=== PATIENT | female | born 1995 | race Caucasian/White ===

== ENCOUNTER 2018-11-13 17:18 | Emergency (ER) | payer OTHER ==
[2018-11-13] MEDS ORDERED: NORMAL SALINE 1000 ML 1,000 ML IV ONE ×2 (18:03→20:42)
--- NOTE | 2018-11-13 18:05 | ER Document Report ---
ED Medical Screen (RME) - General Chief Complaint: High Blood Sugar Stated Complaint: HIGH BLOOD SUGER Time Seen by Provider: 11/13/18 17:40 Mode of Arrival: Ambulatory Information source: Patient Notes: 22-year-old female presented to ED for complaint of elevated blood pressure elevated pulse diabetes type 2 with a blood sugar of over 400 this morning over 300 this afternoon. She states she has been nauseated but no vomiting. Blood pressure is triple over triples. She states normally her blood pressure is within normal limits. She states her pulse usually runs normal. Patient is al ert oriented respirations regular and unlabored. Apical pulse is 132. I have greeted and performed a rapid initial assessment of this patient. A comprehensive ED assessment and evaluation of the patient, analysis of test results and completion of medical decision making process will be conducted by an additional ED providers. Dictation of this chart was performed using voice recognition software; therefore, there may be some unintended grammatical errors. TRAVEL OUTSIDE OF THE [place] IN LAST 30 DAYS: No - Related Data Allergies/Adverse Reactions: No Known Allergies Allergy (Unverified 11/13/18 17:37) Physical Exam - Vital signs Vitals: Temp Pulse BP Pulse Ox 98.4 F 138 H 162/101 H 96 11/13/18 17:32 11/13/18 17:32 11/13/18 17:32 11/13/18 17:32 Course - Vital Signs Vital signs: Temp Pulse Resp BP Pulse Ox 98.4 F 129 H 169/118 H 98 11/13/18 17:32 11/13/18 18:00 11/13/18 18:00 11/13/18 18:00
[2018-11-13 18:37] LABS: ABSOLUTE LYMPHOCYTES (AUTO) 1.5 10^3/uL (0.5-4.7); ABSOLUTE MONOCYTES (AUTO) 0.6 10^3/uL (0.1-1.4); ABSOLUTE NEUT (AUTO) 3.2 10^3/uL (1.7-8.2); BASOPHILS % (AUTO) 0.6 % (0-2); EOSINOPHILS % (AUTO) 0.7 % (0-6); HEMATOCRIT 41.8 % (36.0-47.0); HEMOGLOBIN 14.2 g/dL (12.0-15.5); MEAN CORPUSCULAR HEMOGLOBIN 27.8 pg (27.0-33.4); MEAN CORPUSCULAR VOLUME 82 fl (80-97); MONOCYTES % (AUTO) 10.8 % (3-13); PLATELET COUNT 166 10^3/uL (150-450); RED BLOOD COUNT 5.12 10^6/uL (3.72-5.28); RED CELL DISTRIBUTION WIDTH 13.7 % (11.5-14.0); SEGMENTED NEUTROPHILS % (AUTO) 59.9 % (42-78); TOTAL CELLS COUNTED % (AUTO) 100 %; VENOUS BLOOD BASE EXCESS 0.4 mmol/L; VENOUS BLOOD HCO3 25.3 mmol/L (20-32); VENOUS BLOOD PCO2 41.6 mmHg (35-63); VENOUS BLOOD PH 7.4 (7.30-7.42); WHITE BLOOD COUNT 5.3 10^3/uL (4.0-10.5)
[2018-11-13 18:39] LABS: APPEARANCE,URINE CLEAR; BILIRUBIN,URINE NEGATIVE (NEGATIVE); COLOR,URINE YELLOW; GLUCOSE, URINE 500 mg/dL (NEGATIVE); KETONES,URINE 25 mg/dL (NEGATIVE); LEUKOCYTE ESTERASE,URINE NEGATIVE (NEGATIVE); NITRITE,URINE NEGATIVE (NEGATIVE); PROTEIN,URINE >=500 mg/dL (NEGATIVE); UROBILINOGEN,URINE NEGATIVE mg/dL (<2.0)
[2018-11-13 18:41] LABS: URINE SPECIFIC GRAVITY 1.028
[2018-11-13 18:57] LABS: ALANINE AMINOTRANSFERASE 27 U/L (9-52); ALBUMIN 4.7 g/dL (3.5-5.0); ALKALINE PHOSPHATASE 65 U/L (38-126); ANION GAP 13 (5-19); ASPARTATE AMINO TRANSFERASE 47 U/L (14-36); BILIRUBIN,DIRECT 0.4 mg/dL (0.0-0.4); BILIRUBIN,TOTAL 0.5 mg/dL (0.2-1.3); BLOOD UREA NITROGEN 16 mg/dL (7-20); CALCIUM 9.6 mg/dL (8.4-10.2); CARBON DIOXIDE 24 mmol/L (22-30); CHLORIDE 98 mmol/L (98-107); CREATINE KINASE 208 U/L (30-135); GLUCOSE 265 mg/dL (75-110); POTASSIUM 3.7 mmol/L (3.6-5.0); SODIUM 135.2 mmol/L (137-145); TOTAL PROTEIN 8.2 g/dL (6.3-8.2)
[2018-11-13 19:08] LABS: CREATINE KINASE MB 1.25 ng/mL (<4.55)
[2018-11-13 19:10] LABS: TROPONIN I < 0.012 ng/mL
--- NOTE | 2018-11-13 19:26 | EKG REPORT ---
SEVERITY:- OTHERWISE NORMAL ECG - SINUS TACHYCARDIA : Confirmed by: Vanna Recio MD 13-Nov-2018 19:25:00
[2018-11-13] MEDS ORDERED: LISINOPRIL 10 MG TABLET PO ONE (20:42)
--- NOTE | 2018-11-13 21:57 | ER Document Report ---
Entered by CELESTE YANG SCRIBE 11/13/182040 Acting as scribe for:JOSÉ ANTONIO CARRASCO MD ED General - General Chief Complaint: High Blood Sugar Stated Complaint: HIGH BLOOD SUGER Time Seen by Provider: 11/13/18 17:40 Mode of Arrival: Ambulatory Information source: Patient Notes: 22-year-old female who presents to the emergency department today with complaints of elevated blood pressures and elevated blood sugars for quite some time. Patient was started on 1000 mg of metformin once a day about a year ago and has not missed any medications recently. Patient states that over the last week or two her sugars have been running in the 300s and 400s. Patient states she has been urinating a lot at night and has been thirsty. Patient mentions that she has felt heart palpitations as well. TRAVEL OUTSIDE OF THE [place] IN LAST 30 DAYS: No - Related Data Allergies/Adverse Reactions: No Known Allergies Allergy (Unverified 11/13/18 17:37) Past Medical History - General Information source: Patient - Social History Smoking Status: Never Smoker Cigarette use (# per day): No Frequency of alcohol use: None Drug Abuse: None Lives with: Family Family History: Hypertension - Past Medical History Cardiac Medical History: Reports: Hx Hypertension Endocrine Medical History: Reports: Hx Diabetes Mellitus Type 2 Surgical Hx: Negative Review of Systems - Review of Systems Constitutional: No symptoms reported EENT: No symptoms reported Cardiovascular: See HPI, Palpitations Respiratory: No symptoms reported Gastrointestinal: No symptoms reported Genitourinary: See HPI, Frequency Female Genitourinary: No symptoms reported Musculoskeletal: No symptoms reported Skin: No symptoms reported Hematologic/Lymphatic: No symptoms reported Neurological/Psychological: No symptoms reported -: Yes All other systems reviewed and negative Physical Exam - Vital signs Vitals: Temp Pulse BP Pulse Ox 98.4 F 138 H 162/101 H 96 11/13/18 17:32 11/13/18 17:32 11/13/18 17:32 11/13/18 17:32 - Notes Notes: Physical Exam: General: Alert, appears well. HEENT: Normocephalic. Atraumatic. PERRL. Extraocular movements intact. O ropharynx clear. Neck: Supple. Non-tender. Respiratory: No respiratory distress. Clear and equal breath sounds bilaterally. Cardiovascular: Regular rate and rhythm. Abdominal: Obese. Non-tender. No distension. Normal Bowel Sounds. Back: Non-tender. No deformity or step off. Extremities: Moves all four extremities. Upper extremities: Normal inspection. Normal ROM. Lower extremities: Normal inspection. No edema. Normal ROM. Neurological: Normal cognition. AAOx4. Normal speech. Psychological: Normal affect. Normal Mood. Skin: Tattoos to bilateral lower extremities. Course - Re-evaluation Re-evalutation: 11/13/18 21:09 Hemoglobin A1c is 9.6 11/13/18 22:21 Patient's heart rate is down to about 105. Patient's blood pressure is down to about 130 systolic. I will give her dose of glyburide, and discharge her with prescription for glyburide and lisinopril. - Vital Signs Vital signs: Temp Pulse Resp BP Pulse Ox 98.4 F 129 H 169/118 H 98 11/13/18 17:32 11/13/18 18:00 11/13/18 18:00 11/13/18 18:00 - Laboratory Result Diagrams: 11/13/18 18:15 11/13/18 18:15 Laboratory results interpreted by me: 11/13/18 11/13/18 11/13/18 18:11 18:15 18:15 Sodium 135.2 L Glucose 265 H POC Glucose 238 H Hemoglobin A1c % AST 47 H Creatine Kinase 208 H Urine Protein >=500 H Urine Glucose (UA) 500 H Urine Ketones 25 H 11/13/18 18:15 Sodium Glucose POC Glucose Hemoglobin A1c % 9.6 H AST Creatine Kinase Urine Protein Urine Glucose (UA) Urine Ketones Discharge - Discharge Clinical Impression: Poorly controlled diabetes mellitus High blood pressure Qualifiers: Hypertension type: essential hypertension Qualified Code(s): I10 - Essential (primary) hypertension Condition: Stable Disposition: HOME, SELF-CARE Additional Instructions: Hyperglycemia (High Blood Sugar) You have an abnormally high blood sugar. Uncontrolled high blood sugar leads to early heart disease, strokes, nerve damage, eye damage, and kidney damage. Call the physician if there is faintness, excess sleepiness, or very rapid breathing. High Blood Pressure, Requiring Treatment: Your blood pressure is high. This is called "hypertension." Your history and exam suggest that this is not a temporary problem. You need treatment of your blood pressure. If left untreated, high blood pressure greatly increases your risk of heart attack and stroke. Please don't ignore this problem. If you have blood pressure medicine but aren't using it regularly, start taking it again. Some simple things you can do to help are: Get some aerobic exercise for at least 20 minutes on a daily basis. (See your doctor before beginning any new exercise program.) Eat a low-fat diet. Lose excess weight. Avoid salty foods and avoid adding salt to any of the foods you eat. Avoid diet pills, d econgestants, "energizing" herbs, and other medicines that elevate blood pressure. There are many different medicines that treat blood pressure. If your medication causes unpleasant side effects, call your doctor. There are others you can try. Treating hypertension is a life-long investment in your health. Add the medications as prescribed. Continue drinking plenty of fluids for the next few days. Check your blood sugars a few times a day to be sure they do not go too low with the new medication. Check your blood pressure every day. Follow-up with your primary care provider in the next few days to recheck your blood sugar, blood pressure, and to review the new medications you have started. RETURN TO THE EMERGENCY ROOM IF ANY NEW OR WORSENING SYMPTOMS. Prescriptions: Glyburide [Diabeta 2.5 mg Tablet] 2.5 mg PO DAILY #30 tablet Lisinopril [Prinivil 10 mg Tablet] 10 mg PO DAILY #30 tablet Scribe Attestation: 11/13/18 21:09 I personally performed the services described in the documentation, reviewed and edited the documentation which was dictated to the scribe in my presence, and it accurately records my words and actions. I personally performed the services described in the documentation, reviewed and edited the documentation which was dictated to the scribe in my presence, and it accurately records my words and actions.
[2018-11-13] MEDS ORDERED: GLYBURIDE 2.5 MG TABLET PO ONE (21:58)
[2018-11-13] MEDS ORDERED: GLYBURIDE 2.5 MG TABLET ONE (23:03)
[2018-11-13 23:11] VITALS: BP 138/93
== END 2018-11-13 23:26 | disposition home or self-care (01) ==
LOC: ER 17:18
DX: E11.65 Type 2 diabetes mellitus with hyperglycemia (principal); Z79.84 Long term (current) use of oral hypoglycemic drugs; I10 Essential (primary) hypertension; R00.2 Palpitations
CPT/HCPCS: 93005; 99283; 96360; 96361; 36415; 82553; 82962; 82550; 84703; 85025; 80053; 81001; 84484; 83036; 82803; 93010; J3490; J7030

== ENCOUNTER 2018-11-15 16:09 | Emergency (ER) | payer OTHER ==
--- NOTE | 2018-11-15 16:39 | ER Document Report ---
ED Medical Screen (RME) - General Chief Complaint: Palpitations Stated Complaint: HEADACHE Time Seen by Provider: 11/15/18 16:26 Mode of Arrival: Ambulatory Information source: Patient Notes: Patient is a 22-year-old female with history of hypertension and diabetes mellitus, presenting with multiple complaints today. Patient reports throbbing headache that is generalized, generalized body aches, rapid heart rate, dizziness when standing and tightness in her chest. Patient reports all symptoms have been going on for several days, states she was seen here for the same symptoms and has only progressively gotten worse. Patient does report starting new medications that were prescribed here in the ED, lisinopril and glyburide. Exam: Patient alert, oriented, answering all questions appropriately with no acute distress noted. Heart sounds S1-S2 present with no ectopy noted. Lung sounds clear and equal bilaterally. Patient ambulates with steady gait. I have greeted and performed a rapid initial assessment of this patient. A comprehensive ED assessment and evaluation of the patient, analysis of test results and completion of the medical decision making process will be conducted by additional ED providers. I have specifically instructed the patient or family members with the patient to immediately return to any nursing staff should anything change in the patient's condition or with their chief complaint. This medical record was dictated with voice recognizing software. There may be grammatical, syntax errors that are unintended. TRAVEL OUTSIDE OF THE [place] IN LAST 30 DAYS: No - Related Data Allergies/Adverse Reactions: No Known Allergies Allergy (Unverified 11/13/18 17:37) Past Medical History - Past Medical History Cardiac Medical History: Reports: Hx Hypertension Endocrine Medical History: Reports: Hx Diabetes Mellitus Type 2 Renal/ Medical History: Denies: Hx Peritoneal Dialysis Physical Exam - Vital signs Vitals: Temp Pulse Resp BP Pulse Ox 98.7 F 118 H 20 179/100 H 96 11/15/18 16:27 11/15/18 16:27 11/15/18 16:27 11/15/18 16:27 11/15/18 16:27 Course - Vital Signs Vital signs: Temp Pulse Resp BP Pulse Ox 98.7 F 118 H 20 179/100 H 96 11/15/18 16:27 11/15/18 16:27 11/15/18 16:27 11/15/18 16:27 11/15/18 16:27
[2018-11-15 16:56] LABS: ABSOLUTE EOSINOPHILS # (AUTO) 0.1 10^3/uL (0.0-0.6); ABSOLUTE MONOCYTES (AUTO) 0.6 10^3/uL (0.1-1.4); ABSOLUTE NEUT (AUTO) 2.4 10^3/uL (1.7-8.2); BASOPHILS % (AUTO) 0.6 % (0-2); EOSINOPHILS % (AUTO) 1.7 % (0-6); HEMATOCRIT 42.9 % (36.0-47.0); HEMOGLOBIN 14.5 g/dL (12.0-15.5); LYMPHOCYTES % (AUTO) 39.1 % (13-45); MEAN CORPUSCULAR HEMOGLOBIN 27.8 pg (27.0-33.4); MEAN CORPUSCULAR HGB CONC 33.8 g/dL (32.0-36.0); MEAN CORPUSCULAR VOLUME 82 fl (80-97); MONOCYTES % (AUTO) 11.3 % (3-13); PLATELET COUNT 197 10^3/uL (150-450); RED BLOOD COUNT 5.22 10^6/uL (3.72-5.28); SEGMENTED NEUTROPHILS % (AUTO) 47.3 % (42-78); TOTAL CELLS COUNTED % (AUTO) 100 %; WHITE BLOOD COUNT 5.2 10^3/uL (4.0-10.5)
[2018-11-15 17:12] LABS: ALANINE AMINOTRANSFERASE 62 U/L (9-52); ALBUMIN 4.8 g/dL (3.5-5.0); ALKALINE PHOSPHATASE 54 U/L (38-126); ANION GAP 11 (5-19); ASPARTATE AMINO TRANSFERASE 102 U/L (14-36); BILIRUBIN,DIRECT 0.3 mg/dL (0.0-0.4); BILIRUBIN,TOTAL 0.4 mg/dL (0.2-1.3); BLOOD UREA NITROGEN 16 mg/dL (7-20); CALCIUM 9.9 mg/dL (8.4-10.2); CARBON DIOXIDE 29 mmol/L (22-30); CHLORIDE 98 mmol/L (98-107); GLUCOSE 183 mg/dL (75-110); POTASSIUM 3.9 mmol/L (3.6-5.0); SODIUM 137.9 mmol/L (137-145); TOTAL PROTEIN 8.1 g/dL (6.3-8.2)
[2018-11-15] MEDS ORDERED: KETOROLAC TROMETHAMINE INJ/PF 30 MG/1 ML SDV IV ONE (18:40)
[2018-11-15] MEDS ORDERED: DIPHENHYDRAMINE HCL 50 MG/ML VIAL IV ONE (18:40)
[2018-11-15] MEDS ORDERED: LISINOPRIL 10 MG TABLET PO ONE (18:40)
[2018-11-15] MEDS ORDERED: NORMAL SALINE 1000 ML 1,000 ML IV ONE (18:40)
--- NOTE | 2018-11-15 19:11 | ER Document Report ---
Entered by ARY FRANCE SCRIBE 11/15/18 [id number] Acting as scribe for:JOSÉ ANTONIO CARRASCO MD ED General - General Chief Complaint: Palpitations Stated Complaint: HEADACHE Time Seen by Provider: 11/15/18 16:26 Mode of Arrival: Ambulatory Notes: Patient is a 22-year-old female presenting to the emergency department complaining of a throbbing headache, rapid heartbeat, and associated body aches. Patient was in the emergency department 2 days ago for an elevated blood pressure, elevated blood sugar. Patient states that the throbbing headache began yesterday. Patient states that the body aches have been going on since Sunday 11/12. Patient states that she began taking lisinopril 2 days ago, usually at 1800 every day, but she did not take it today. TRAVEL OUTSIDE OF THE [place] IN LAST 30 DAYS: No - Related Data Allergies/Adverse Reactions: No Known Allergies Allergy (Unverified 11/13/18 17:37) Past Medical History - General Information source: Patient - Social History Smoking Status: Never Smoker Cigarette use (# per day): No Chew tobacco use (# tins/day): No Frequency of alcohol use: None Drug Abuse: None Family History: Hypertension Patient has suicidal ideation: No Patient has homicidal ideation: No - Past Medical History Cardiac Medical History: Reports: Hx Hypertension Endocrine Medical History: Reports: Hx Diabetes Mellitus Type 2 Review of Systems - Review of Systems Constitutional: No symptoms reported EENT: No symptoms reported Cardiovascular: No symptoms reported Respiratory: No symptoms reported Gastrointestinal: No symptoms reported Genitourinary: No symptoms reported Female Genitourinary: No symptoms reported Musculoskeletal: See HPI, Other - Generalized aching Skin: No symptoms reported Hematologic/Lymphatic: No symptoms reported Neurological/Psychological: See HPI, Headaches -: Yes All other systems reviewed and negative Physical Exam - Vital signs Vitals: Temp Pulse Resp BP Pulse Ox 98.7 F 118 H 20 179/100 H 96 11/15/18 16:27 11/15/18 16:27 11/15/18 16:27 11/15/18 16:27 11/15/18 16:27 - Notes Notes: Physical Exam: General: Alert, obese. HEENT: Forehead tender to percussion. Right sinus region tender to percussion. Atraumatic. PERRL. Extraocular movements intact. Oropharynx clear. Neck: Supple. Non-tender. Respiratory: No respiratory distress. Clear and equal breath sounds bilaterally. Cardiovascular: Tachycardic. Regular rhythm. Abdominal: Normal Inspection. Non-tender. No distension. Normal Bowel Sounds. Back: Non-tender. No deformity or step off. Extremities: Moves all four extremities. Upper extremities: Normal inspection. Normal ROM. Lower extremities: Normal inspection. No edema. Normal ROM. Neurological: Normal cognition. AAOx4. Normal speech. Psychological: Normal affect. Normal Mood. Skin: Warm. Dry. Normal color. Course - Re-evaluation Re-evalutation: 11/15/18 20:33 Patient reports she feels much better with no pain at this time. Her blood pressure is down to 129 systolic, heart rate is down to 100. Her urine is concentrated as it was 2 days ago with specific gravity 1.029. She is not spilling glucose in the urine today, and the protein in the urine is down from greater than 500 to only 100. She is encouraged to continue the new medication regimen that was started 2 days ago as it seems to be working. She should drink a lot more fluids, she reports that when she is at work she is not allowed opportunities to go drink water. Advised her to drink a lot of water before she starts shift, when she goes on breaks, when she gets off work and and at home. She is to follow-up with her primary care provider next week for review of her new medication regimen. - Vital Signs Vital signs: Temp Pulse Resp BP Pulse Ox 98.8 F 125 H 20 148/94 H 97 11/15/18 17:59 11/15/18 17:59 11/15/18 19:07 11/15/18 19:07 11/15/18 19:07 - Laboratory Result Diagrams: 11/15/18 16:42 11/15/18 16:42 Laboratory results interpreted by me: 11/15/18 11/15/18 16:42 16:42 Glucose 183 H AST 102 H ALT 62 H Urine Protein 100 H Urine Ketones 20 H - EKG Interpretation by Ne EKG shows normal: Sinus rhythm, [place], Intervals, ST-T Waves. abnormal: QRS Complexes - Inferior and lateral Q waves probably normal variant Rate: Normal - 116 Rhythm: NSR When compared to previous EKG there are: No significant change Discharge - Discharge Clinical Impression: Generalized body aches, Tachycardia, Palpitations High blood pressure Qualifiers: Hypertension type: essential hypertension Qualified Code(s): I10 - Essential (primary) hypertension Diabetes Qualifiers: Diabetes mellitus type: type 2 Diabetes mellitus custodial insulin use: without long term care administrator use Diabetes mellitus complication status: without complication Quali fied Code(s): E11.9 - Type 2 diabetes mellitus without complications Headache Qualifiers: Headache type: unspecified Headache chronicity pattern: acute headache Intractability: not intractable Qualified Code(s): R51 - Headache Condition: Stable Disposition: HOME, SELF-CARE Additional Instructions: Continue your current medications. Take Tylenol and ibuprofen for headache or any other pains. Drink plenty of fluids throughout the day in the evening. Follow-up with your primary care provider next week to review your medications and recheck your blood sugar and blood pressure. RETURN TO THE EMERGENCY ROOM IF ANY NEW OR WORSENING SYMPTOMS. Scribe Attestation: 11/15/18 19:12 I personally performed the services described in the documentation, reviewed and edited the documentation which was dictated to the scribe in my presence, and it accurately records my words and actions. I personally performed the services described in the documentation, reviewed and edited the documentation which was dictated to the scribe in my presence, and it accurately records my words and actions.
[2018-11-15 19:54] LABS: APPEARANCE,URINE SLIGHTLY-CLOUDY; BILIRUBIN,URINE NEGATIVE (NEGATIVE); COLOR,URINE YELLOW; GLUCOSE, URINE NEGATIVE (NEGATIVE); KETONES,URINE 20 mg/dL (NEGATIVE); LEUKOCYTE ESTERASE,URINE NEGATIVE (NEGATIVE); NITRITE,URINE NEGATIVE (NEGATIVE); PROTEIN,URINE 100 mg/dL (NEGATIVE); URINE SPECIFIC GRAVITY 1.023; UROBILINOGEN,URINE NEGATIVE mg/dL (<2.0)
[2018-11-15 21:37] VITALS: BP 130/86
--- NOTE | 2018-11-16 00:02 | EKG REPORT ---
SEVERITY:- OTHERWISE NORMAL ECG - SINUS TACHYCARDIA : Confirmed by: Vanna Recio MD 16-Nov-2018 00:00:43
== END 2018-11-15 21:39 | disposition home or self-care (01) ==
LOC: ER 16:09
DX: M79.10 Myalgia, unspecified site (principal); R00.2 Palpitations; R00.0 Tachycardia, unspecified; R51 Headache; I10 Essential (primary) hypertension; E11.9 Type 2 diabetes mellitus without complications
CPT/HCPCS: 93005; 99285; 96361; 96374; 96375; 36415; 85025; 80053; 81001; 84484; 93010; J1200; J1885; J7030